=== PATIENT | female | born 1965 | race Caucasian/White ===

== ENCOUNTER → 2016-08-21 | Outpatient (CLI) | payer BC ==
[2015-11-21 15:07] VITALS: BP 139/86
[~2016-08-21] MED LIST: LISI1TAB7 PO; NADO40TA PO; NORE0.356 PO; PARO20TA2 PO
--- NOTE | 2016-08-21 11:36 | KCIC ---
PQRS STATEMENT One or more of the following individualized dose reduction techniques were utilized for this study:1.Automated exposure control2.Adjustment of the mA and/orkVaccording to patient size3.Use of iterative reconstruction technique CT TEMPORAL BONE HISTORY: Tinnitus bilateral ears, cholesteatoma COMPARISON: None Technique: Thin slice contiguous axial images were obtained through the region of the temporal bone in bone algorithm. Additional coronal and sagittal reconstructions were also performed. FINDINGS: RIGHT temporal bone:The external auditory canal is patent. There is no thickening of the tympanic membrane. The ossicular chain is intact without evidence of bony erosion. The scutum is also intact. No abnormal soft tissue is seen in the middle air cavity. The inner ear structures are unremarkable. The facial nerve is within normal limits. The internal auditory canal is within normal limits. The mastoid air cells are clear. No fractures are seen. LEFT temporal bone:The external auditory canal is patent. There is no thickening of the tympanic membrane. The ossicular chain is intact without evidence of bony erosion. The scutum is also intact. No abnormal soft tissue is seen in the middle air cavity. The inner ear structures are unremarkable. The facial nerve is within normal limits. The internal auditory canal is within normal limits. The mastoid air cells are clear. No fractures are seen. Limited evaluation of the intracranial contents reveals no abnormality. Partially visualized mucosal thickening identified in the bilateral ethmoidal sinus and the right sphenoid sinus. Mild mucosal thickening identified in the partially visualized bilateral maxillary sinuses. IMPRESSION: 1. Unremarkable CT temporal bones. 2. Mucosal thickening identified in the bilateral ethmoidal sinus, right sphenoid sinus and the partially visualized bilateral maxillary sinus likely sinus disease. Electronically signed by: Anish Jones (Aug 21, 2016 11:34:34)
== END | disposition home or self-care (01) ==
LOC: KCIC CT 10:59
PROVIDERS: ATTEND Otolaryngology Otology & Neurotology
DX: H60 Otitis externa (principal)
CPT/HCPCS: 70480